=== PATIENT | female | born 1995 | race Caucasian/White ===

== ENCOUNTER 2019-02-09 20:59 | Emergency (ER) | payer OTHER ==
[~2019-02-09] VITALS: Ht 160 cm; Wt 68.0 kg
[~2019-02-09 20:59] MED LIST: ABILIFY 5 MG TAB5 M1 PO; BENTYL 20 MG TA20 M1 PO; CITROMA296 ML PO; CLARITIN10 MG PO; CLONIDINE HCL0.2 M2; COLACE100 MG PO; ERY-TAB250 MG PO; FLEET ENEMA EX230 ML RC; FLEET ENEMA118 ML RC; GOLYTELY4000 M1 GT; IBUPROFEN 600600 M1 PO; KLOR-CON 1010 MEQ PO; LIDOCAINE VISC100 M1 SWISH&SPIT; MACROBID 100 M100 M1 PO; MEDROLDOSEPACK PO; NOHOMEMEDICATIONS; NORCO 5-325 TA1 EACH PO; ONDANSETRON HCL4 M2 PO; ORTHO EVRA PAT1 EACH TD; PROZAC 20 MG20 M1; TRAMADOL 50 MG50 MG PO; ULTRAM 50MG TAB50 MG PO; ZANTAC 150MG T150 MG PO; ZOLOFT25 MG; ZPAK PO
[2019-02-09] MEDS ORDERED: COLD-FLU M-SYM1 EACH PO (21:18)
[2019-02-09] MEDS ORDERED: SLEEP AID50 MG PO (21:19)
[2019-02-09 21:33] LABS: URINE BILIRUBIN NEGATIVE (Negative); URINE BLOOD NEGATIVE (Negative); URINE CLARITY CLEAR; URINE COLOR STRAW; URINE GLUCOSE-RANDOM NEGATIVE (Negative); URINE KETONES NEGATIVE (Negative); URINE LEUKOCYTES-REFLEX NEGATIVE (Negative); URINE NITRITE-REFLEX NEGATIVE (Negative); URINE PROTEIN NEGATIVE (Negative); URINE UROBILINOGEN 0.2 E.U./dl (0.2-1.0)
[2019-02-09] MEDS ORDERED: PREDNISONE50 MG PO (23:02)
[2019-02-09 23:17] VITALS: BP 135/80
== END 2019-02-09 23:18 | disposition home or self-care (01) ==
LOC: M.ERS 20:59
PROVIDERS: Emergency Medicine
DX: R21 Rash and other nonspecific skin eruption (principal); R19.7 Diarrhea, unspecified; F41.9 Anxiety disorder, unspecified; F31.9 Bipolar disorder, unspecified; F17.210 Nicotine dependence, cigarettes, uncomplicated; Z88.0 Allergy status to penicillin; Z88.2 Allergy status to sulfonamides